=== PATIENT | male | born 1990 | race Hispanic/Latino ===

== ENCOUNTER 2020-04-06 18:57 | Emergency (ER) | payer SELFPAY ==
[2020-04-06 20:12] LABS: Absolute Lymphocytes (CBC) 1.1 K/uL (0.7-4.9); Basophils % 0.5 % (0-1.3); Hematocrit 47.3 % (39.6-49.0); Lymphocytes % 24.3 % (15.3-44.8); MPV 10.3 fL (7.6-11.3); RBC Red Blood Cell Count 5.71 M/uL (4.33-5.43)
[2020-04-06] MEDS ORDERED: NA CHLORIDE 0.9% 1,000 ML ONE (20:17)
[2020-04-06] MEDS ORDERED: ACETAMINOPHEN 500 MG TAB ONE (20:17)
[2020-04-06 20:27] LABS: ALT/SGPT 81 U/L (12-78); AST/SGOT 68 U/L (15-37); Albumin 3.6 g/dL (3.4-5.0); Alkaline Phosphatase 68 U/L (45-117); BUN Blood Urea Nitrogen 9 mg/dL (7-18); Bicarbonate 24 mmol/L (21-32); Bilirubin Direct 0.2 mg/dL (0-0.2); Bilirubin Total 0.5 mg/dL (0.2-1.0); Glucose Level 91 mg/dL (74-106); Lipase 119 U/L (73-393); Potassium 3.3 mmol/L (3.5-5.1); Protein, Total 8.3 g/dL (6.4-8.2); Sodium Level 137 mmol/L (136-145)
--- NOTE | 2020-04-06 21:34 | RAD REPORT ---
EXAM DESCRIPTION: CT - Abdomen Pelvis W Contrast - 04/06/2020 9:23 pm CLINICAL HISTORY: Abdominal pain. COMPARISON: None. TECHNIQUE: Computed axial tomography of the abdomen and pelvis was obtained. 100 cc Isovue-300 is ad ministered intravenously. Oral contrast was given. All CT scans are performed using dose optimization technique as appropriate and may include automated exposure control or mA/KV adjustment according to patient size. FINDINGS: Mild bilateral ground-glass opacities within the lower lobes. Fatty liver Spleen, pancreas, adrenals and kidneys appear unremarkable. The appendix is normal caliber. There is no evidence of diverticulitis A tiny umbilical hernia. Small inguinal hernias contain fat IMPRESSION: Mild ground-glass opacities within the lower lobes of the lungs consistent with an alve olitis. This can be seen with Covid pneumonia Fatty liver
[2020-04-06 22:31] LABS: Urine Bacteria <20 /HPF (NONE SEEN); Urine Culture Reflex Order NOT NEEDED; Urine RBC <5 /HPF (NONE SEEN); Urine Urothelial Cells <5 /HPF (NONE SEEN)
[2020-04-06] MEDS ORDERED: AZITHROMYCIN 250 MG TAB ONE (22:45)
[2020-04-06] MEDS ORDERED: CEFTRIAXONE/SWI 1gm 1 GM/10 ML SYR ONE (22:46)
[2020-04-06] MEDS ORDERED: dexAMETHasone 10 MG/ML VIAL ONE (22:46)
--- NOTE | 2020-04-06 22:50 | ER ---
Nurse's Notes [facility] Name: Christophe Silva Age: 29 yrs Sex: Male : 1990 Arrival Date: 04/06/2020 Time: 19:04 Bed 13 Private MD: Diagnosis: Pneumonia due to other specified infectious organisms;Unspecified abdominal pain;Constipation, unspecified Presentation: 04/06 19:12 Chief complaint: Patient states: Mid abdominal pain since Saturday. Last BM Saturday. No ll1 known fever. Coronavirus screen: Patient denies a cough. Patient denies shortness of breath or difficulty breathing. Patient reports a measured and/or subjective temperature greater than 100.4F. Patient denies travel on a cruise ship or to a country the [facility] currently lists as an affected area. Patient denies contact with known and/or suspected case of COVID-19. Patient instructed to continue to wear a mask when interacting with others. Patient moved to private room, placed in contact and droplet isolation with eye protection until further assessment. Ebola Screen: Patient denies travel to an Ebola-affected area in the 21 days before illness onset. Initial Sepsis Screen: Does the patient meet any 2 criteria? Temp <36.0*C (96.8*F)) or > 38.3*C (100.9*F). HR > 90 bpm. Yes Does the patient have a suspected source of infection? Yes: Acute abdominal pain. Risk Assessment: Do you want to hurt yourself or someone else? Patient reports no desire to harm self or others. Onset of symptoms was April 03, 2020. 19:12 Method Of Arrival: Ambulatory ll1 19:12 Acuity: AMY 3 ll1 Historical: - Allergies: 19:14 No Known Allergies; ll1 - PSHx: 19:14 None; ll1 - Immunization history:: Adult Immunizations up to date. - Social history:: Smoking status: Patient reports the use of cigarette tobacco products, denies chronic smoking, but will smoke occasionally, Patient uses alcohol, only on a social basis. Patient/guardian denies using street drugs. Screenin:15 Abuse screen: Denies threats or abuse. Nutritional screening: No deficits noted. mt2 Tuberculosis screening: No symptoms or risk factors identified. Fall Risk None identified. Assessment: 19:15 Reassessment: Patient and/or family updated on plan of care and expected duration. Pain mt2 level reassessed. Pain: Complains of pain in abdomen Pain currently is 7 out of 10 on a pain scale. Neuro: No deficits noted. Cardiovascular: No deficits noted. Respiratory: No deficits noted. GI: Bowel sounds present X 4 quads. Abdomen is tender to palpation Reports upper abdominal pain. : No deficits noted. EENT: No deficits noted. Derm: No deficits noted. Musculoskeletal: No deficits noted. 20:14 Reassessment: Patient and/or family updated on plan of care and expected duration. Pain mt2 level reassessed. General: Appears comfortable, Behavior is cooperative. Pain: Complains of pain in abdomen Pain currently is 7 out of 10 on a pain scale. 21:00 Reassessment: Patient and/or family updated on plan of care and expected duration. Pain mt2 level reassessed. Patient denies pain at this time. General: Appears in no apparent distress. Behavior is cooperative. 22:00 Reassessment: Patient and/or family updated on plan of care and expected duration. Pain mt2 level reassessed. Patient denies pain at this time. General: Appears in no apparent distress. comfortable, Behavior is cooperative. 22:59 Reassessment: Patient and/or family updated on plan of care and expected duration. Pain mt2 level reassessed. Patient denies pain at this time. 23:04 Reassessment: Patient and/or family updated on plan of care and expected duration. Pain mt2 level reassessed. Patient denies pain at this time. General: Appears in no apparent distress. comfortable, Behavior is cooperative. Vital Signs: 19:12 BP 123 / 95; Pulse 114; Resp 20; Temp 102.3; Pulse Ox 97% ; Pain 6/10; ll1 20:13 BP 151 / 101; Pulse 81; Resp 17; Pulse Ox 99% ; Pain 7/10; mt2 21:00 BP 139 / 81; Pulse 81; Resp 16; Temp 100.1(O); Pulse Ox 98% on R/A; Pain 0/10; mt2 22:00 BP 133 / 79; Pulse 16; Resp 19; Temp 99.2(O); Pulse Ox 97% on R/A; Pain 0/10; mt2 23:04 BP 135 / 71; Pulse 89; Resp 16; Pulse Ox 97% on R/A; Pain 0/10; mt2 ED Course: 19:04 Patient arrived in ED. mr 19:13 Agustin Cooper PA is PHCP. cp 19:13 Etienne Moses MD is Attending Physician. cp 19:14 Triage completed. ll1 19:14 Arm band placed on Patient placed in an exam room, on a stretcher. ll1 19:15 Patient has correct armband on for positive identification. Placed in gown. Bed in low mt2 position. Call light in reach. Side rails up X 1. 19:20 Gema Brown, JULISSA is Primary Nurse. mt2 19:20 Attending Physician role handed off by Etienne Moses MD [facility] 19:20 Agustin Parker MD is Attending Physician. [facility] 21:23 CT Abd/Pelvis - PO and IV Contrast In Process Unspecified. EDMS 22:18 XRAY Chest Pa And Lat (2 Views) In Process Unspecified. EDMS 22:53 COVID-19 Sent. mt2 22:53 Flu Sent. mt2 22:53 Strep Sent. mt2 23:00 No provider procedures requiring assistance completed. mt2 23:04 IV discontinued, intact, bleeding controlled, No redness/swelling at site. Pressure mt2 dressing applied. Administered Medications: 20:00 Drug: NS 0.9% 1000 ml Route: IV; Rate: 1 bolus; Site: right antecubital; mt2 21:00 Follow up: Response: No adverse reaction; IV Status: Completed infusion; IV Intake: mt2 1000ml 20:09 Drug: Tylenol 1000 mg Route: PO; mt2 20:40 Follow up: Response: No adverse reaction; Temperature is decreased mt2 22:20 Drug: Decadron - Dexamethasone 6 mg Route: IVP; Site: right antecubital; mt2 23:01 Follow up: Response: No adverse reaction mt2 22:20 Drug: Rocephin 1 grams Route: IV; Rate: calculated rate; Site: right antecubital; mt2 23:01 Follow up: Response: No adverse reaction; IV Status: Completed infusion; IV Intake: [id number] 22:25 Drug: Zithromax 500 mg Route: PO; mt2 23:01 Follow up: Response: No adverse reaction mt2 Intake: 21:00 IV: 1000ml; Total: 1000ml. mt2 23:01 IV: 10ml; Total: 1010ml. mt2 Outcome: 22:49 Discharge ordered by MD. cp 23:02 Discharged to home ambulatory. mt2 23:02 Condition: good 23:02 Discharge instructions given to patient, Instructed on discharge instructions, follow up and referral plans. medication usage, Demonstrated understanding of instructions, follow-up care, medications, Prescriptions given X 3. 23:06 Patient left the ED. mt2 Addendum: 04/09/2020 13:00 Addendum: COVID-19 Result: Positive result giiven to ED physician to notify pt. h b Physician: Agustin Parker MD Physician left voice mail for pt to call the ED back. 13:13 Addendum: COVID-19 Result: Positive result giiven to ED physician to notify pt. h b Physician was able to contact pt and pt was notified of positive COVID-19 swab result. Physician answered pt questions. Signatures: Dispatcher [employer] EDNV Agustin Parker MD MD cha Rivera, Xochitl mr Agustin Cooper PA PA cp Baxter, Heather, RN RN Sravan Guerra RN RN ll1 Gema Brown RN RN mt2 Corrections: (The following items were deleted from the chart) 13:14 13:13 Addendum: COVID-19 Result: Positive result giiven to ED physician to notify pt. Physician was able to contact pt and pt was notified of positive COVID-19 swab result. Physician answered pt questions.
--- NOTE | 2020-04-06 22:50 | EDPHYS ---
Physician Documentation [facility] Name: Christophe Silva Age: 29 yrs Sex: Male : 1990 Arrival Date: 04/06/2020 Time: 19:04 Bed 13 Private MD: ED Physician Agustin Parker HPI: 04/06 19:50 This 29 yrs old Male presents to ER via Ambulatory with complaints of cp Abdominal Pain, Constipation. 19:50 The patient presents with abdominal pain in the periumbilical area. cp 19:50 Onset: The symptoms/episode began/occurred 2 day(s) ago. The symptoms do not radiate. cp Associated signs and symptoms: Pertinent positives: constipation, fever, Pertinent negatives: chest pain, diarrhea, dysuria, shortness of breath, testicular pain, vomiting, cough. Historical: - Allergies: 19:14 No Known Allergies; ll1 - PSHx: 19:14 None; ll1 - Immunization history:: Adult Immunizations up to date. - Social history:: Smoking status: Patient reports the use of cigarette tobacco products, denies chronic smoking, but will smoke occasionally, Patient uses alcohol, only on a social basis. Patient/guardian denies using street drugs. ROS: 19:55 Constitutional: Positive for fever, Negative for body aches, chills, poor PO intake. cp 19:55 Eyes: Negative for injury, pain, redness, and discharge. cp 19:55 ENT: Negative for ear pain, sore throat, difficulty swallowing, difficulty handling secretions. 19:55 Cardiovascular: Negative for chest pain, edema, palpitations. 19:55 Respiratory: Negative for cough, shortness of breath, wheezing. 19:55 Abdomen/GI: Positive for abdominal pain, constipation, Negative for vomiting, diarrhea. 19:55 Skin: Negative for rash. 19:55 Neuro: Negative for altered mental status, headache, weakness. 19:55 All other systems are negative. Exam: 20:05 Constitutional: The patient appears in no acute distress, alert, awake, cp non-diaphoretic, non-toxic, well developed, well nourished, obese. 20:05 Head/Face: Normocephalic, atraumatic. cp 20:05 Eyes: Periorbital structures: appear normal, Conjunctiva: normal, no exudate, no injection, Sclera: no appreciated abnormality, Lids and lashes: appear normal, bilaterally. 20:05 ENT: External ear(s): are unremarkable, Nose: is normal, Mouth: Lips: moist, Oral mucosa: moist, Posterior pharynx: Airway: no evidence of obstruction, patent. 20:05 Neck: ROM/movement: is normal, is supple, without pain, no range of motions limitations. 20:05 Chest/axilla: Inspection: normal, Palpation: is normal, no crepitus, no tenderness. 20:05 Cardiovascular: Rate: tachycardic, Rhythm: regular, Edema: is not appreciated, JVD: is not appreciated. 20:05 Respiratory: the patient does not display signs of respiratory distress, Respirations: normal, no use of accessory muscles, no retractions, no splinting, no tachypnea, labored breathing, is not present, Breath sounds: decreased breath sounds, are not appreciated, stridor, is not appreciated, wheezing: is not appreciated. 20:05 Abdomen/GI: Inspection: obese Bowel sounds: active, all quadrants, Palpation: soft, in all quadrants, moderate abdominal tenderness, in the umbilical area, rebound tenderness, is not appreciated, voluntary guarding, is not appreciated, involuntary guarding, is not appreciated. 20:05 Back: pain, is absent, ROM is normal. 20:05 Skin: no rash present. 20:05 Neuro: Orientation: to person, place \T\ time. Mentation: is normal, Cerebellar function: is grossly normal, Motor: moves all fours, strength is normal, Sensation: is normal. Vital Signs: 19:12 BP 123 / 95; Pulse 114; Resp 20; Temp 102.3; Pulse Ox 97% ; Pain 6/10; ll1 20:13 BP 151 / 101; Pulse 81; Resp 17; Pulse Ox 99% ; Pain 7/10; mt2 21:00 BP 139 / 81; Pulse 81; Resp 16; Temp 100.1(O); Pulse Ox 98% on R/A; Pain 0/10; mt2 22:00 BP 133 / 79; Pulse 16; Resp 19; Temp 99.2(O); Pulse Ox 97% on R/A; Pain 0/10; mt2 23:04 BP 135 / 71; Pulse 89; Resp 16; Pulse Ox 97% on R/A; Pain 0/10; mt2 MDM: 19:20 Patient medically screened. dipti 20:00 Differential diagnosis: appendicitis, bowel obstruction, cholecystitis, Cholelithiasis, cp diverticulitis, gastritis, non-specific abd pain, pancreatitis. 22:48 Data reviewed: vital signs, nurses notes, lab test result(s), radiologic studies, CT cp scan, plain films. 22:48 Test interpretation: by ED physician or midlevel provider: plain radiologic studies. cp Counseling: I had a detailed discussion with the patient and/or guardian regarding: the historical points, exam findings, and any diagnostic results supporting the discharge/admit diagnosis, lab results, radiology results, the need for outpatient follow up, a family practitioner, to return to the emergency department if symptoms worsen or persist or if there are any questions or concerns that arise at home. 22:48 ED course: VSS. Pain and fever improved. Discussed results of CT abdomen/pelvis that cp showed pneumonia and concern for COVID-19 infection. COVID testing performed and patient will be discharged to home to quarantine with family. No signs of respiratory distress observed and patient appears non-toxic. 04/06 19:46 Order name: Basic Metabolic Panel; Complete Time: 20:28 cp 04/06 20:28 Interpretation: Normal except: K 3.3. cp 04/06 19:46 Order name: CBC with Diff; Complete Time: 20:28 cp 04/06 20:29 Interpretation: Normal except: RBC 5.71; PLT 130. cp 04/06 19:46 Order name: Hepatic Function; Complete Time: 20:28 cp 04/06 20:28 Interpretation: Normal except: AST 68; ALT 81; TP 8.3; GLOB 4.7; A/G 0.8. cp 04/06 19:46 Order name: Lipase; Complete Time: 20:28 cp 04/06 21:02 Order name: Urine Dipstick--Ancillary (enter results) tt3 04/06 21:43 Order name: COVID-19 cp 04/06 19:49 Order name: CT Abd/Pelvis - PO and IV Contrast; Complete Time: 21:40 cp 04/06 21:43 Order name: XRAY Chest Pa And Lat (2 Views) cp 04/06 21:43 Order name: Flu cp 04/06 21:43 Order name: Strep cp 04/06 21:43 Order name: Urine Microscopic Only; Complete Time: 22:48 cp 04/06 19:46 Order name: IV Saline Lock; Complete Time: 20:12 cp 04/06 19:46 Order name: Labs collected and sent; Complete Time: 20:12 cp 04/06 21:43 Order name: O2 Per Protocol; Complete Time: 23:05 cp 04/06 21:43 Order name: Urine Dipstick-Ancillary (obtain specimen); Complete Time: 22:32 cp 04/06 22:39 Order name: Vital Signs: please update to include temp; Complete Time: 22:52 cp Administered Medications: 20:00 Drug: NS 0.9% 1000 ml Route: IV; Rate: 1 bolus; Site: right antecubital; mt2 21:00 Follow up: Response: No adverse reaction; IV Status: Completed infusion; IV Intake: mt2 1000ml 20:09 Drug: Tylenol 1000 mg Route: PO; mt2 20:40 Follow up: Response: No adverse reaction; Temperature is decreased mt2 22:20 Drug: Decadron - Dexamethasone 6 mg Route: IVP; Site: right antecubital; mt2 23:01 Follow up: Response: No adverse reaction mt2 22:20 Drug: Rocephin 1 grams Route: IV; Rate: calculated rate; Site: right antecubital; mt2 23:01 Follow up: Response: No adverse reaction; IV Status: Completed infusion; IV Intake: [id number] 22:25 Drug: Zithromax 500 mg Route: PO; mt2 23:01 Follow up: Response: No adverse reaction [facility] Disposition: 04/06/20 22:49 Discharged to Home. Impression: Pneumonia due to other specified infectious organisms, Unspecified abdominal pain, Constipation, unspecified. - Condition is Stable. - Discharge Instructions: Abdominal Pain, Adult, Constipation, Adult, Community-Acquired Pneumonia, Adult. - Prescriptions for dexamethasone 1 mg Oral tablet - take 2 tablet by ORAL route 3 times per day for 7 days; 42 tablet. Zithromax Z- Alfredito 250 mg Oral Tablet - take 1 tablet by ORAL route as directed for 5 days Day 1 - take two (2) tablets one time. Day 2, 3, 4 , 5 take one (1) tablet once daily.; 6 tablet. Miralax 17 gram/dose Oral - take 1 packet by ORAL route once daily As needed dilute powder in 8 ounces of water or juice; 10 packet. - Medication Reconciliation Form, Thank You Letter, Antibiotic Education, Prescription Opioid Use form. - Follow up: Private Physician; When: 2 - 3 days; Reason: Recheck today's complaints. - Problem is new. - Symptoms have improved. - Notes: Need to quarantine with family. COVID-19 testing pending. Return to ED if symptoms worsen Addendum: 04/09/2020 07:16 Co-signature as Attending Physician, Agustin Parker MD I agree with the assessment and c calvert plan of care. Signatures: Dispatcher [employer] EDOH Agustin Parker MD MD cha Page, Corey PA PA Sravan Aguilar, RN RN ll1 Gema Brown RN RN mt2 Corrections: (The following items were deleted from the chart) 04/06 23:06 22:49 04/06/2020 22:49 Discharged to Home. Impression: Pneumonia due to other specified mt2 infectious organisms; Unspecified abdominal pain; Constipation, unspecified. Condition is Stable. Prescriptions for dexamethasone 1 mg Oral tablet - take 2 tablet by ORAL route 3 times per day for 7 days; 42 tablet, Zithromax Z-Alfredito 250 mg Oral Tablet - take 1 tablet by ORAL route as directed for 5 days Day 1 - take two (2) tablets one time. Day 2, 3, 4 , 5 take one (1) tablet once daily.; 6 tablet. and Forms are Medication Reconciliation Form, Thank You Letter, Antibiotic Education, Prescription Opioid Use. Follow up: Private Physician; When: 2 - 3 days; Reason: Recheck today's complaints. Problem is new. Symptoms have improved. cp
[2020-04-07 00:30] LABS: Urine Blood NEGATIVE (NEG); Urine Glucose NEGATIVE (NEG); Urine Protein 1+ (NEG); Urine Specific Gravity 1.025 (1.005-1.030)
[2020-04-07 00:56] VITALS: TEMP 99.2; O2SAT 97
[2020-04-07 00:57] VITALS: BP 135/71
--- NOTE | 2020-04-07 08:45 | RAD REPORT ---
EXAM DESCRIPTION: RAD - Chest Pa And Lat (2 Views) - 04/06/2020 10:21 pm CLINICAL HISTORY: FEVER Chest pain. COMPARISON: Abdomen Pelvis W Contrast dated 04/06/2020 FINDINGS: Mild interstitial prominence is seen bilaterally which may indicate a mild interstitial pn eumonitis. The heart is normal in size. No displaced fractures.
== END 2020-04-06 23:06 | disposition home or self-care (01) ==
LOC: ER 18:57
DX: U07.1 COVID-19 (principal); J12.89 Other viral pneumonia; K59.00 Constipation, unspecified
CPT/HCPCS: 36415; 71046; 74177; 80048; 80076; 81003; 81015; 83690; 85025; 87070; 87081; 87804; 96361; 96365; 96375; 99284; J0696; J1100; J7030; Q9967; U0001